=== PATIENT | female | born 1990 | race African-American/Black ===

== ENCOUNTER 2022-06-04 13:25 | Emergency (ER) | payer MEDICAID, OTHER ==
[~2022-06-04] VITALS: Ht 167.6 cm; Wt 59.0 kg
[~2022-06-04 13:25] MED LIST: PREN-88 PO
[2022-06-04] MEDS ORDERED: SODIUM CHLORIDE 0.9% 1,000 ML IV ONE ×2 (14:15)
[2022-06-04 14:26] LABS: BASOPHILS % 1.3 % (0.0-2.0); EOSINOPHILS % 0.2 % (0.0-5.0); HEMOGLOBIN. 7.6 g/dL (12.0-16.0); LYMPHOCYTES % 11.5 % (20.0-50.0); MEAN CORPUSCULAR HEMOGLOBIN 14.3 pg (28.0-32.0); MEAN CORPUSCULAR VOLUME 52.9 fL (81.0-99.0); MEAN PLATELET VOLUME 8.4 fl (7.4-10.4); MONOCYTES % 9.4 % (2.0-8.0); NEUTROPHILS % 77.6 % (40.0-76.0); PLATELET 939 x1000/uL (130-400); RED BLOOD CELL COUNT 5.28 mill/uL (4.2-5.4)
[2022-06-04 14:36] LABS: CHLORIDE 98 mEq/L (98-107)
[2022-06-04 14:47] LABS: PLATELET ESTIMATE MARKEDLY INCREASED
[2022-06-04 14:58] LABS: B-HCG QUANTITATIVE 62936 mIU/mL (<3)
[2022-06-04] MEDS ORDERED: ONDANSETRON HCL 4MG/2ML INJ IV ONE (16:45)
[2022-06-04 18:00] VITALS: BP 102/65
[2022-06-04] MEDS ORDERED: FERR325T6 MT (18:00)
== END 2022-06-04 18:32 | disposition home or self-care (01) ==
LOC: ER 13:25
DX: O26.891 Other specified pregnancy related conditions, first trimester (principal); O99.011 Anemia complicating pregnancy, first trimester; D64.9 Anemia, unspecified; R53.1 Weakness; Z3A.01 Less than 8 weeks gestation of pregnancy
CPT/HCPCS: 36415; 76801; 76817; 80053; 84702; 85025; 86850; 86900; 86901; 96361; 96374; 99284; J2405; J7030